=== PATIENT | male | born 1955 | race Caucasian/White ===

== ENCOUNTER 2016-07-03 04:53 | Emergency (ER) | payer BC ==
[2016-07-03 05:00] VITALS: BP 147/84; PULSE 70; RESP 18; TEMP 98.3
--- NOTE | 2016-07-03 05:27 | ED ---
Skin/Abscess/FB HPI - General Chief complaint: Skin/Abscess/Foreign Body Stated complaint: Leg infection Time Seen by Provider: 07/03/16 05:00 Source: patient, family, RN notes reviewed Mode of arrival: ambulatory Limitations: no limitations - History of Present Illness Initial comments: This is a 60-year-old male who states he was working in brush at a property [place] this past weekend he started developing a rash to his left leg. It was itchy in nature red. Very fevers chills or sweats. He states at work last night he did bang his doss and then started developing an area of darkness inability red area. Heis draining some dark blood. He denies any other injuries and other problems. This is not on his left leg but only on the right. He's not sure if he got into poison gail. 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 MD complaint: rash, discoloration - Related Data Home Medications Medication Instructions Recorded Confirmed Omeprazole 20 mg PO DAILY 07/03/16 07/03/16 Propranolol [Inderal] 20 mg PO BID 07/03/16 07/03/16 amLODIPine BESYLATE [Norvasc] 10 mg PO DAILY 07/03/16 07/03/16 metFORMIN HCL [Glucophage Xr] 500 mg PO DAILY 07/03/16 07/03/16 Previous Rx's Medication Instructions Recorded Sulfamethox-Tmp 800-160Mg [Bactrim 2 each PO Q12HR #40 tab 07/03/16 DS 800-160 mg] hydrOXYzine HCL [Atarax] 25 mg PO TID PRN #20 tab 07/03/16 predniSONE 20 mg PO BID #14 tab 07/03/16 Allergies Allergy/AdvReac Type Severity Reaction Status Date / Time No Known Allergies Allergy Verified 07/03/16 05:00 Review of Systems ROS Statement: Those systems with pertinent positive or pertinent negative responses have been documented in the HPI. ROS Other: All systems not noted in ROS Statement are negative. Past Medical History Past Medical History: GERD/Reflux, Hypertension History of Any Multi-Drug Resistant Organisms: None Reported Past Surgical History: Appendectomy, Hernia Repair Past Psychological History: No Psychological Hx Reported Smoking Status: Former smoker Past Alcohol Use History: None Reported Past Drug Use History: None Reported General Exam - General Exam Comments Initial Comments: This is a well-developed well-nourished awake alert oriented 3 male Limitations: no limitations General appearance: alert, in no apparent distress Neck exam: Present: normal inspection Extremities exam: Present: full ROM, tenderness, normal capillary refill, pedal edema, other (There is approximately 2.5 cm area of ecchymosis with some dark blood emanating from it consistent with a blood blister. She also was multiple patchy areas of erythema consistent with localized cellulitis likely combination of contact dermatitis with cellulitis. No lymphangitis is noted there is +1 pedal edema noted.) Neurological exam: Present: alert, oriented X3, CN II-XII intact Psychiatric exam: Present: normal affect, normal mood Skin exam: Present: warm Course Vital Signs 07/03/16 04:56 Temperature 98.3 F Pulse Rate 70 Respiratory 18 Rate Blood Pressure 147/84 O2 Sat by Pulse 97 Oximetry Medical Decision Making - Medical Decision Making At this time no further workup is indicated. Patient presentation is consistent with a localized contact dermatitis with a secondary cellulitis. He will be placed on appropriate medications he was cautioned that elevate his legs several times a day I did recommend support stockings. Also clean dressings as needed. I also did credit support counselor the patient that this area will have a prolonged healing process Disposition Clinical Impression: Contact dermatitis, Cellulitis, Hematoma Disposition: HOME SELF-CARE Condition: Good Instructions: Contact Dermatitis (ED), Cellulitis (ED), Hematoma (ED) Prescriptions: Sulfamethox-Tmp 800-160Mg [Bactrim DS 800-160 mg] 2 each PO Q12HR #40 tab hydrOXYzine HCL [Atarax] 25 mg PO TID PRN #20 tab PRN Reason: Itching predniSONE 20 mg PO BID #14 tab
== END 2016-07-03 05:39 | disposition home or self-care (01) ==
LOC: EC 04:53
DX: L25.9 Unspecified contact dermatitis, unspecified cause (principal); L03.116 Cellulitis of left lower limb; K21.9 Gastro-esophageal reflux disease without esophagitis; I10 Essential (primary) hypertension; Z87.891 Personal history of nicotine dependence; Z79.84 Long term (current) use of oral hypoglycemic drugs; Z79.899 Other long term (current) drug therapy
CPT/HCPCS: 99282